=== PATIENT | female | born 1985 | race Caucasian/White ===

== ENCOUNTER 2018-10-19 10:35 | Emergency (ER) | payer OTHER ==
[~2018-10-19] VITALS: Ht 160 cm; Wt 58.7 kg
[~2018-10-19 10:35] MED LIST: DIPH1TAB PO; LORA1TAB PO; ONDA4TAB6 PO
[2018-10-19 10:42] VITALS: BP 128/83
[2018-10-19 11:18] LABS: CLARITY,URINE CLEAR (Clear); COLOR,URINE STRAW (Yellow); GLUCOSE, URINE NEGATIVE (Neg); KETONES,URINE NEGATIVE (Neg); LEUKOCYTE ESTERASE ,URINE NEGATIVE (Neg); NITRITES, URINE NEGATIVE (Neg); OCCULT BLOOD,URINE NEGATIVE (Neg); PH,URINE 7.5 (4.8-8.0); PROTEIN,URINE NEGATIVE (Neg); URINE HCG NEGATIVE (NEG); UROBILINOGEN,URINE 0.2 E.U/dL (0.2-1.0)
[2018-10-19 11:20] LABS: BASOPHILS % (AUTO) 0.4 % (0-1); EOSINOPHILS % (AUTO) 0.1 % (0-6); HEMATOCRIT 40.3 % (35.0-45.0); HEMOGLOBIN 13.1 g/dl (12.0-16.0); LYMPHOCYTES # (AUTO) 1.3 X10'3 (1.1-4.8); LYMPHOCYTES % (AUTO) 19.8 % (21-51); MEAN CORPUSCULAR HEMOGLOBIN 25.1 PG (27.0-31.0); MEAN CORPUSCULAR HGB CONC 32.4 g/dL (33.0-36.5); MEAN CORPUSCULAR VOLUME 77.5 FL (78-98); MONOCYTES # (AUTO) 0.5 X10'3 (0-0.9); NEUTROPHILS # (AUTO) 4.8 X10'3 (1.8-7.7); NEUTROPHILS % (AUTO) 72.7 % (42-75); PLATELET COUNT 251 X10'3 (140-440); RED CELL DISTRIBUTION WIDTH 16.6 % (11.5-14.5); WHITE BLOOD COUNT 6.7 X10'3 (4.5-11.0)
[2018-10-19 11:21] LABS: UA COLLECTION TYPE CLN CATCH MIDSTREAM
[2018-10-19 11:43] LABS: ALANINE AMINOTRANSFERASE 23 U/L (12-78); ALBUMIN 4.4 G/DL (3.4-5.0); ALBUMIN/GLOBULIN RATIO 1.2 (1.1-1.5); ALKALINE PHOSPHATASE 40 IU/L (46-116); ANION GAP 9 (8-16); ASPARTATE AMINO TRANSFERASE 16 U/L (10-37); BILIRUBIN,TOTAL 0.4 MG/DL (0.1-1.0); BLOOD UREA NITROGEN 9 MG/DL (7-18); CALCIUM 9.4 MG/DL (8.5-10.1); CHLORIDE 103 MMOL/L (99-107); CREATININE 0.82 MG/DL (0.40-0.90); GLUCOSE 103 MG/DL (70-104); SODIUM 137 MMOL/L (135-145); TOTAL CARBON DIOXIDE 24.8 MMOL/L (24-32); TOTAL PROTEIN 8.2 G/DL (6.4-8.2); eGFR 82 ML/MIN
[2018-10-19] MEDS ORDERED: iohexol 300mg/ml 100ml inj. ONE (12:14)
[2018-10-19] MEDS ORDERED: POLY17PO10 PO (13:19)
== END 2018-10-19 13:49 | disposition home or self-care (01) ==
LOC: ER 10:35
DX: N83.202 Unspecified ovarian cyst, left side (principal); N83.201 Unspecified ovarian cyst, right side; Z79.899 Other long term (current) drug therapy; Z88.2 Allergy status to sulfonamides; Z87.42 Personal history of other diseases of the female genital tract
CPT/HCPCS: 36415; 74177; 80053; 81003; 81025; 85025; 85610; 99284; Q9967